=== PATIENT | female | born 1985 | race Caucasian/White ===

== ENCOUNTER → 2016-10-29 | Outpatient (CLI) | payer OTHER ==
[~2016-10-29] MED LIST: BCPILLS PO; PRENTAB26 PO
== END | disposition home or self-care (01) ==
LOC: C.LABSPEC 11:16
PROVIDERS: ATTEND Obstetrics & Gynecology
DX: Z34.83 Encounter for supervision of other normal pregnancy, third trimester (principal)

== ENCOUNTER 2016-11-30 20:08 | Inpatient (IN) | payer OTHER ==
[~2016-11-30] VITALS: Ht 170.2 cm; Wt 81.8 kg
[~2016-11-30 20:08] MED LIST changes: -PRENTAB26 PO
[2016-11-30] MEDS ORDERED: LACTATED RINGER'S 1000ML 1,000 ML IV PRN (21:01)
[2016-11-30] MEDS ORDERED: LACTATED RINGER'S 1000ML 1,000 ML IV SCH (21:01)
[2016-11-30] MEDS ORDERED: PENICILLIN G POTASSIUM IV 6 MU in DEXTROSE 5% 250ML 250 ML IV ONE (21:30)
[2016-11-30 22:18] LABS: HEMATOCRIT 37.6 % (37-47); MEAN CELL VOLUME 85.1 fL (80-100); MEAN CORPUSCULAR HEMOGLOBIN 29.2 pg (25-34); MEAN CORPUSCULAR HGB CONC 34.3 g/dl (32-36); MEAN PLATELET VOLUME 10.1 fL (7.4-10.4); PLATELET COUNT 172 K/uL (130-400); RED BLOOD COUNT 4.42 M/uL (4.2-5.4)
[2016-11-30 22:21] VITALS: Ht 170.2 cm; Wt 81.8 kg
[2016-11-30] MEDS ORDERED: PRENTAB26 PO (22:29)
[2016-12-01] MEDS: PENICILLIN G POTASSIUM IV 3 MU in DEXTROSE 5% 100ML 100 ML IV PRN ×3 (01:27→09:01)
[2016-12-01] MEDS ORDERED: LACTATED RINGER'S 1000ML 500 ML IV PRN (05:05)
[2016-12-01] MEDS ORDERED: OXYTOCIN 30 UNITS/500ML NSS IV PRN ×2 (05:15→12:00)
--- NOTE | 2016-12-01 09:45 | Medical Student: [facility] ---
Med Student History & Physical Date of Service Dec 01, 2016. Chief Complaint "My water broke" History of Present Illness Source: patient, partner, clinic records, hospital records This is a 31 yo at 41 1/7 weeks gestation as established by LMP on and confirmed by first trimester ultrasound who presents with rupture of membranes. She reports that she is feeling well right now and is ready for delivery. She endorses continued movement and activity. She had some mild spotting following a cervical check, but denies any significant bleeding. Her water broke last night and she described it as a gush of clear fluid and continued leakage until now, which has slowed significantly. She is having regular contractions and pressure, but no significant pain with contractions or need to push. Her was for the most part uncomplicated, other than breech presentation which led to initial plan for . At her appointment on 11/19/16 the fetus was found to be in vertex position and the was canceled. Her GBS testing was positive, and she has received 2 doses of penicillin as of this morning. labs: Blood type: O+ w/negative antibody screen HCT/HGB: 39.2%/13.2 g/dl Pap: Negative Varicella not tested Rubella: equivocal VDRL/RPR: Nonreactive Urine culture/screen: negative HBsAg: Negative HIV: negative Chlamydia: negative Gonorrhea: negative MSAFP: negative Second trimester screening: negative Diabetes: Negative GBS: Positive OB History G1: Elective induced , 06/2004 G2: (06/29/09) of 8 lb 9 oz female infant at 40 weeks GA following 7 hours of labor. No complications. 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 LMP was 02/17/16. No history of STDs, or abnormal pap smears. Last pap smear was 05/2015. Past Medical History History of chicken pox. No other significant past medical history. Only medications are vitamins. Past Surgical History Closed reduction of femoral fracture at age 5 or 6. No other surgeries. Family History Noncontributory Social History Smoking Status: Former Smoker (smoked 1 pack per week for approximately 8 years. 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) Allergies Coded Allergies: No Known Allergies (Verified , NKA, 11/30/16) Home Medications Multivit/Min/Iron/Fol Ac/Pren ( Vitamin), 1 TAB PO DAILY Review of Systems Eyes: No worsening of vision Abdomen: No pain Physical Exam General Appearance: WD/WN, no apparent distress Head: normocephalic, atraumatic Respiratory/Chest: lungs clear, normal breath sounds Cardiovascular: regular rate, rhythm, no murmur Abdomen / GI: non tender, soft, + pertinent finding (gravid) Genitourinary - Female: + pertinent finding (cervix 4 cm dilated, 80% effaced, -2 station) Extremities: no calf tenderness, no pedal edema Neurologic/Psych: alert, oriented x 3 Skin: normal color Monitoring External Monitor: Baseline rate of 150, moderate variability, accelerations present, no decels. reactive tracing Tocodynamometer: Contractions every 3-4 minutes Laboratory Results 11/30/16 22:05 Test 11/30/16 22:05 Red Blood Count 4.42 M/uL (4.2-5.4) Mean Corpuscular Volume 85.1 fL (80-100) Mean Corpuscular Hemoglobin 29.2 pg (25-34) Mean Corpuscular Hemoglobin Concent 34.3 g/dl (32-36) RDW Standard Deviation 40.4 fL (36.4-46.3) RDW Coefficient of Variation 13.0 % (11.5-14.5) Mean Platelet Volume 10.1 fL (7.4-10.4) Assessment and Plan This is a 31 yo at 41 1/7 weeks gestation as established by LMP on and confirmed by first trimester ultrasound who presents with rupture of membranes. She is in latent phase of stage 1 of labor. positioning is vertex as confirmed by ultrasound. heart monitoring shows a category I tracing. No complicating factors identified at this time. She is receiving IV pitocin due to slow progression of labor following ROM. Team will continue to monitor and maternal vital signs and perform regular cervical checks for progression of labor. She should receive MMR vaccine following delivery.
[2016-12-01] MEDS ORDERED: HYDROCORTISONE ACETATE 25 MG SUPP PR PRN (12:00)
[2016-12-01] MEDS ORDERED: DIPHTHERIA/TETANUS/PERTUSSIS 0.5 ML SYR/VIAL IM. ONE (12:00)
[2016-12-01] MEDS ORDERED: LANOLIN OINT EXT PRN ×2 (12:00)
[2016-12-01] MEDS ORDERED: BENZOCAINE 20% AER SPR 82.5 GM CAN EXT PRN (12:00)
[2016-12-01] MEDS ORDERED: ACETAMINOPHEN/CODEINE 300/30MG TAB PO PRN ×2 (12:00)
[2016-12-01] MEDS ORDERED: ACETAMINOPHEN 325 MG TAB PO PRN (12:00)
[2016-12-01] MEDS ORDERED: SUPERCREAM 0.870 % 15GM JAR EXT PRN (12:00)
--- NOTE | 2016-12-01 12:12 | Medical Student: [facility] ---
Operative Report Operative Date Dec 01, 2016. Pre-Operative Diagnosis 31 yo at 41 and 1/7 weeks GA, with premature rupture of membranes Post-Operative Diagnosis same Procedure(s) Performed Spontaneous vaginal delivery Surgeon Dr. Edouard Assistant Professor Nurse Education Surgeon(s) MAREK Kenyon Estimated Blood Loss 300 ml Findings viable male , apgars 8/9, weight pending Specimens cord blood, placenta Anesthesia none Complication(s) first degree right vaginal laceration, hemostasis achieved without repair Disposition L&D Description of Procedure Patient was administered pitocin and progressed to complete labor. She began to push and spontaneously vaginally delivered a viable male . The was delivered in the left occiput anterior position. After the head was delivered, no nuchal cord was noted. Next, the anterior shoulder was delivered followed by the posterior shoulder. Then the body was delivered. The baby was dried and subsequently placed on mother's abdomen. A spontaneous cry was heard. The cord was double clamped and cut for a possible cord gas. Cord blood was then collected. The placenta was then delivered spontaneously. It was intact and 2 umbilical arteries and 1 umbilical vein was observed. After delivery, pitocin drip was increased to 333 to rapid return of uterine tone. Upon palpation the uterus was firm. The perineum, vagina, and cervix were inspected for any tears. A first degree vaginal laceration was observed. Pressure was applied and hemostasis was achieved. Lastly, sponges,instruments, and needles were counted and correct at the end of the delivery.
[2016-12-01] MEDS: IBUPROFEN 600 MG TAB PO PRN (13:26)
--- NOTE | 2016-12-01 13:34 | DELIVERY SUMMARY ---
DATE OF OPERATION: 12/01/2016 FINDINGS: Viable male infant with Apgars of 8 and 9. Baby delivered spontaneously over an intact perineum. Baby delivered en Caul. Rupture of membranes on perineum. Cord gasses, cord blood samples obtained. Placenta delivered spontaneously. Perineum intact. Estimated blood loss 300 cc. LABOR NOTE: The patient is a 31-year-old 3 para 1 with an EDC of 23 November at 41+ weeks' gestational age who presented to labor and delivery on 30 November with spontaneous rupture of membranes. The patient states membranes ruptured at 18:15 on the 30 of November. She described the fluid as clear. She was not having any regular contractions. The patient had a benign course, remarkable for positive GBS culture. Upon admission, the patient was 4 cm dilated, 75% effaced and -2 station and tracing was category 1. Because of the positive GBS status, the patient received penicillin 6 million units loading dose then 3 million units every 4 hours until delivery. Because of the positive GBS status, Pitocin augmentation was recommended. The patient declined Pitocin and wished for conservative observation and management. The patient was observed for approximately 9 hours with no uterine activity appreciated. At that point, the patient consented for Pitocin augmentation. Pitocin was initially delayed secondary to staffing issues, but it was started at approximately 0800 hours on the 01 of December. Delivering physician assumed care for the patient. The patient had several episodes of variable decelerations making the tracing borderline category through tracing. With positional changes and fluid bolus, the tracing returned to a category 2. Pitocin though was discontinued. The patient progressed to and began her second stage. She pushed for approximately 30 minutes. With the delivery of the vertex, the baby delivered in an en Caul presentation. Artificial rupture of membranes with a Mady clamp was then performed. Baby was then delivered. Cord was clamped and cut. Cord gases, cord blood samples obtained. Placenta delivered spontaneously. The perineum was inspected. There was a small superficial first degree laceration in the periurethral area with a hemostatic character, so sutures were not applied. Sponge and needle count was correct. I attest to the content of the Intraoperative Record and any orders documented therein. Any exceptio ns are noted below.
[2016-12-01 17:00] VITALS: BP 116/69; PULSE 64; TEMP 36.7
[2016-12-01 19:45] VITALS: BP 122/76; PULSE 69; TEMP 36.8
[2016-12-01] MEDS: DOCUSATE SODIUM 100 MG CAP PO SCH (19:51)
[2016-12-02 00:05] VITALS: BP 110/68; PULSE 62; TEMP 36.7; O2SAT 98
[2016-12-02 04:00] VITALS: BP 121/77; PULSE 68; TEMP 36.4; O2SAT 98
[2016-12-02 06:08] LABS: HEMATOCRIT 34.2 % (37-47)
--- NOTE | 2016-12-02 06:50 | Medical Student: [facility] ---
Med Student [facility] SCI[employer] Progress Nt Date of Service Dec 02, 2016. Subjective conversation w/ patient, physical exam, chart review Ambulation: ambulating normally (in room) Voiding: no voiding problems Passing Gas: Yes Diet Tolerance: Regular Diet Lochia: Small Feeding Type: Breast Feeding Pain: very mild, controlled with oral pain medications Review of Systems Respiratory: No shortness of breath Cardiac: No chest pain Abdomen: No pain no lightheadedness or dizziness Objective Vital Signs Date Time Temp Pulse Resp B/P Pulse Ox O2 Delivery O2 Flow Rate FiO2 12/02/16 04:00 36.4 68 16 121/77 98 Room Air 12/02/16 00:05 98 Room Air 12/02/16 00:05 36.7 62 16 110/68 98 Room Air 12/01/16 19:45 36.8 69 18 122/76 Room Air 12/01/16 17:04 Room Air 12/01/16 17:00 36.7 64 18 116/69 Room Air Physical Exam General Appearance: WELL-APPEARING, NO APPARENT DISTRESS Respiratory/Chest: lungs clear, normal breath sounds Cardiovascular: regular rate, rhythm, no murmur Abdomen: non tender, soft Fundus: Firm, Relation to Umbilicus (1 cm below) Extremities: normal inspection Laboratory Results Last 24 Hours Test 12/02/16 06:00 Hemoglobin 11.5 g/dL Hematocrit 34.2 % Assessment and Plan Post- Day Number: 1 (1) with 41 completed weeks gestation Status: Resolved Assessment & Plan: Vitals stable. Blood type O+ so no need for rhogam. GBS treated. Received MMR yesterday immediately following delivery. Doing well clinically, will continue to encourage ambulation. Continue routine post- care.
[2016-12-02] MEDS ORDERED: MEASLES, MUMPS & RUBELLA VIRUS VIAL SQ. ONE (07:30)
--- NOTE | 2016-12-02 07:34 | Progress Note ---
Subjective Dec 02, 2016. Subjective conversation w/ patient, physical exam Ambulation: ambulating normally Voiding: no voiding problems Passing Gas: Yes Diet Tolerance: Regular Diet Lochia: Small Feeding Type: Breast Feeding Review of Systems Constitutional: No chills, No fever, No sweats Respiratory: No cough, No shortness of breath Cardiac: No chest pain, No claudication Objective Vital Signs Date Time Temp Pulse Resp B/P Pulse Ox O2 Delivery O2 Flow Rate FiO2 12/02/16 04:00 36.4 68 16 121/77 98 Room Air 12/02/16 00:05 98 Room Air 12/02/16 00:05 36.7 62 16 110/68 98 Room Air 12/01/16 19:45 36.8 69 18 122/76 Room Air 12/01/16 17:04 Room Air 12/01/16 17:00 36.7 64 18 116/69 Room Air Physical Exam General Appearance: WELL-APPEARING, NO APPARENT DISTRESS Respiratory/Chest: lungs clear, no respiratory distress Cardiovascular: regular rate, rhythm, no murmur Fundus: Firm, Non-Tender, Relation to Umbilicus (1 cm below) Extremities: non-tender, no calf tenderness Laboratory Results Last 24 Hours Test 12/02/16 06:00 Hemoglobin 11.5 g/dL Hematocrit 34.2 % Assessment and Plan Post- Day#: 1 Continue Routine Care: s/p Day 1 vitals reviewed and wnl hgb 11.5 blood: O+, GBS+, Rubella immune patient doing well clinically encourage ambulation, encourage and monitor lochia patient to receive MMR vaccine CONTINUE ROUTINE POST CARE Resident Physician Supervision Note: I interviewed and examined the patient. Discussed with Dr. Barrios and agree with findings and plan as documented in the note. Any exceptions or clarifications are listed here: [None] Documented By: Jan Edouard
[2016-12-02] MEDS: DOCUSATE SODIUM 100 MG CAP PO SCH ×2 (08:20→20:16)
[2016-12-02] MEDS: FERROUS SULFATE 325 MG TAB PO SCH (08:21)
[2016-12-02] MEDS: PRENATAL VITAMIN TAB PO SCH (08:21)
[2016-12-02 09:39] VITALS: BP 113/71; PULSE 75; TEMP 36.6; O2SAT 97
[2016-12-02 12:02] VITALS: BP 133/81; PULSE 72; TEMP 36.2
[2016-12-02] MEDS: IBUPROFEN 600 MG TAB PO PRN (16:10)
[2016-12-02 17:00] VITALS: BP 126/83; PULSE 79; TEMP 36.4; O2SAT 98
--- NOTE | 2016-12-02 17:12 | Discharge Instructions ---
Discharge Instructions Date of Service Dec 02, 2016. Admission Reason for Admission: Check Rupture Membrane Discharge Discharge Diagnosis / Problem: after delivery Discharge Goals Goal(s): Routine recovery after delivery Medications Continue Dispensed Medications: supercream, dermaplast, tucks, lansinoh Activity Recommendations Activity Limitations: as noted below . Instructions / Follow-Up Instructions / Follow-Up ACTIVITY RECOMMENDATIONS: * Gradual return to full activity over the next 2-3 weeks. * No lifting - nothing heavier than baby over the next 2-3 weeks. * Do not engage in vigorous exercise, sexual activity or sports until cleared by your physician. * Do not drive or operate any motorized equipment until cleared by your physician. * You may shower/bathe daily. MEDICATIONS: For discomfort or pain, you may use Acetaminophen (Tylenol), Ibuprofen (Advil), or Naproxen (Aleve) following the package directions. For constipation you may use Colace following the package directions. BREAST CARE: If you are not breast feeding: * Wear a supportive bra 24 hours a day for one to two weeks. * Avoid stimulating your breasts and nipples as much as possible during the first few weeks after delivery. * When taking a shower, have the warm water hit your back, not breasts. * When your breasts feel full, apply ice packs. Usually three to four times a day helps ease the discomfort. * Take a mild pain medication (Tylenol / Motrin) when you are uncomfortable. If breast feeding: * Use breast milk to lubricate nipples. Lansinoh cream may be used for sore nipples. You do not need to remove cream prior to breast feeding. If using a different brand of cream, check the label for directions regarding removal of cream prior to nursing. * Wear a supportive bra. * If having problems with breasts or breast feeding, call a pre owned sales consultant or your health care provider. EPISIOTOMY CARE: After delivery, if you have an episiotomy (stitches), the following steps will ease discomfort and aid healing. * For the first 24 hours after delivery, place ice packs next to your episiotomy to help reduce swelling. * After the first 24 hour-period, sitz baths, either portable or in the tub, are suggested. A shower with a shower arm sprayed over the episiotomy may be comforting. * Bridget care should be done after each voiding and bowel movement. Squirt warm water from a plastic bottle over the perineum (region of the body between the anus and urinary opening) and pat dry. * Use Dermoplast to ease discomfort. Shake container. Beacon directly over the episiotomy. Place a Tucks on a clean sanitary pad next to your episiotomy. SPECIAL CARE INSTRUCTIONS: When you are discharged from the hospital, it is important for you to follow the instructions listed below: * During the first week at home, you should be able to care for yourself and your baby. In addition, the usual light household activities are encouraged. * Limit your activities to the way you feel. Do not try to clean the house or move furniture. Be sensible. * If you actively engage in sports and have done so up until the time of your delivery, you may resume these activities as soon as you feel able. This may take up to one month or even longer. Use good judgment. * Continue to take your vitamins for at least six weeks after the of your baby. * Your diet need not be limited unless you were on a special diet before your delivery. Breast-feeding mothers need around 2500 calories per day and at least 64-80 ounces of fluid per day (8 to 10 glasses). * You should eat foods from the four major food groups. Crash diets or fad diets are to be avoided. Eating lean meats, fresh fruits and vegetables, low-fat dairy products, high fiber foods and a regular exercise program, will help you get back to your pre- weight without putting your health at risk. * Constipation is sometimes a problem after delivery. Take a mild laxative as needed. If breast feeding, Milk of Magnesia is acceptable to use. You may use a suppository or Fleets enema if no episiotomy. * A daily shower or tub bath is suggested. Be sure to thoroughly and gently dry the perineum. * A bloody vaginal discharge will usually continue until around four weeks post . A small amount of bleeding may continue for as long as six weeks. Vaginal discharge changes from the bright red bleeding after delivery to pink then brownish and finally yellowish-pink before becoming white and disappearing. * Bleeding may increase with activity. Your first period may come in 4-8 weeks. If you are breast feeding, your period may be delayed even longer. * [place] (sex) can begin whenever both you and your partner feel comfortable and do not have any form of genital infection. It is recommended that you wait at least six weeks for internal and external healing to occur. If you have questions, please talk to your health care practitioner. A condom should be used to prevent infection and . * Foreplay, gentle intercourse and lubrication is very important the first several times to prevent pain. A water-based lubricant such as K-Y jelly or Astroglide may be used. * If you have RH negative blood and your baby is RH positive, you will receive RHOGAM by injection prior to discharge. The nurse will give you a card to keep with you that has the date and place that you received RHOGAM after delivery. * During your care, you had a Rubella screen done to check for the presence of rubella antibodies in your blood. If your test was negative, you will receive a Rubella vaccine prior to discharge. This vaccine may cause a fever, soreness at the injection site and flu-like symptoms. If these symptoms persist, notify your health care practitioner. is not advised for one month after a Rubella vaccine. * Verbalizes understanding of car seat law as reviewed with patient nursing. * Car Seat hand-out given and reviewed with patient by nursing. * Shaken baby information reviewed with patient by nursing. Call you doctor if: * Heavy bleeding (saturating several pads an hour) or passing clots the size of your fist. * A fever >101 degrees F (38.3 degrees C) on two occasions four hours apart and /or chills. * Unusual pain in the pelvic or vaginal areas. * "Baby Blues" lasting longer than two weeks. If you have any questions or concerns, call your health care practitioner at . FOLLOW UP VISIT: * Please call the office at to schedule a 6 week examination. It is important you keep this appointment. It is important for you to make arrangements for either yearly or twice yearly check-ups thereafter. Current Hospital Diet Patient's current hospital diet: Regular OB Diet Discharge Diet Recommended Diet: Regular Diet Pending Studies Studies pending at discharge: no Medical Emergencies . Who to Call and When: Medical Emergencies: If at any time you feel your situation is an emergency, please call 911 immediately. . Non-Emergent Contact Non-Emergency issues call your: Animal Care Technician . . "Provider Documentation" section prepared by Monica Arora. VTE Core Measure Inpt VTE Proph given/why not?: Treatment not indicated
[2016-12-02] MEDS ORDERED: BISACODYL 5 MG TABEC PO SCH (20:00)
[2016-12-03 00:20] VITALS: BP 128/85; PULSE 81; TEMP 36.7
--- NOTE | 2016-12-03 06:22 | Medical Student: [facility] ---
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 Subjective conversation w/ patient, physical exam, chart review, lab review Ambulation: ambulating normally Voiding: no voiding problems Passing Gas: Yes (no bowel movement yet) Diet Tolerance: Regular Diet Lochia: Small Feeding Type: Breast Feeding Pain: 1/10 vaginal pain. mild cramping Notes: passed one medium-sized clot yesterday. Review of Systems Respiratory: No shortness of breath Cardiac: No chest pain Objective Vital Signs Date Time Temp Pulse Resp B/P Pulse Ox O2 Delivery O2 Flow Rate FiO2 12/03/16 00:20 Room Air 12/03/16 00:20 36.7 81 18 128/85 Room Air 12/02/16 17:00 98 Room Air 12/02/16 17:00 36.4 79 17 126/83 98 Room Air 12/02/16 12:02 36.2 72 20 133/81 12/02/16 09:39 36.6 75 15 113/71 97 Room Air Physical Exam General Appearance: WELL-APPEARING, NO APPARENT DISTRESS Respiratory/Chest: lungs clear, normal breath sounds Cardiovascular: regular rate, rhythm, no murmur Abdomen: non tender, soft Fundus: Firm, Non-Tender, Relation to Umbilicus (3 cm below umbilicus) Extremities: non-tender, no pedal edema Laboratory Results Test 11/30/16 22:05 12/02/16 06:00 White Blood Count 11.10 Red Blood Count 4.42 Hemoglobin 12.9 11.5 Hematocrit 37.6 34.2 Mean Corpuscular Volume 85.1 Mean Corpuscular Hemoglobin 29.2 Mean Corpuscular Hemoglobin Concent 34.3 RDW Standard Deviation 40.4 RDW Coefficient of Variation 13.0 Platelet Count 172 Mean Platelet Volume 10.1 Assessment and Plan Post- Day Number: 2 (1) with 41 completed weeks gestation Status: Resolved Assessment & Plan: Vitals stable. Blood type O+ so no need for rhogam. GBS treated. Received MMR immediately following delivery. Doing well clinically, will continue to encourage ambulation. Discharge home today.
--- NOTE | 2016-12-03 08:10 | Progress Note ---
Subjective Dec 03, 2016. Subjective conversation w/ patient, physical exam Ambulation: ambulating normally Voiding: no voiding problems Diet Tolerance: Regular Diet Lochia: Small Feeding Type: Breast Feeding Pain: no issues Objective Vital Signs Date Time Temp Pulse Resp B/P Pulse Ox O2 Delivery O2 Flow Rate FiO2 12/03/16 00:20 Room Air 12/03/16 00:20 36.7 81 18 128/85 Room Air 12/02/16 17:00 98 Room Air 12/02/16 17:00 36.4 79 17 126/83 98 Room Air 12/02/16 12:02 36.2 72 20 133/81 12/02/16 09:39 36.6 75 15 113/71 97 Room Air Physical Exam General Appearance: WELL-APPEARING, WD/WN, NO APPARENT DISTRESS Respiratory/Chest: lungs clear Cardiovascular: regular rate, rhythm Abdomen: non tender, soft Fundus: Firm, Relation to Umbilicus (2 down) Extremities: non-tender Assessment and Plan Post- Day#: 2 Continue Routine Care: stable routine care. ready for d/c home. breast. instructions reviewed. f/u 6 wks pp
[2016-12-03] MEDS: PRENATAL VITAMIN TAB PO SCH (08:15)
[2016-12-03] MEDS: DOCUSATE SODIUM 100 MG CAP PO SCH (08:15)
[2016-12-03] MEDS: FERROUS SULFATE 325 MG TAB PO SCH (08:15)
[2016-12-03 08:40] VITALS: BP 115/74; PULSE 83; TEMP 36.2
[2016-12-03 11:30] VITALS: BP_DIAS 74; PULSE 83; TEMP 36.2
== END 2016-12-03 11:45 | disposition home or self-care (01) | DRG 775 ==
LOC: C.LD 20:08 → C.OPB 20:08 → C.LD 21:02 → C.OBG 12-01 15:12
PROVIDERS: ADMIT Obstetrics & Gynecology; ATTEND Obstetrics & Gynecology
PROC: 10E0XZZ Delivery of Products of Conception, External Approach (ICD-10-PCS; principal; 2016-12-01)
DX: O48.0 Post-term pregnancy (principal); O99.824 Streptococcus B carrier state complicating childbirth; O42.02 Full-term premature rupture of membranes, onset of labor within 24 hours of rupture; O76 Abnormality in fetal heart rate and rhythm complicating labor and delivery; O41.8X30 Other specified disorders of amniotic fluid and membranes, third trimester, not applicable or unspecified; Z37.0 Single live birth; Z3A.41 41 weeks gestation of pregnancy; Z23 Encounter for immunization